=== PATIENT | female | born 1965 | race Two or more races ===

== ENCOUNTER 2021-02-06 20:32 | Emergency (ER) | payer BC ==
[~2021-02-06] VITALS: Ht 157.5 cm; Wt 52.6 kg
[2021-02-06 20:39] VITALS: BP_SYST 108
[2021-02-06] MEDS ORDERED: fentaNYL CITRATE/PF 100 MCG/2 ML AMP IVP ONE (21:45)
[2021-02-06 21:55] LABS: BASOPHILS % (AUTO) 0.2 % (0.0-2.0); EOSINOPHILS # (AUTO) 0.2 K/uL (0.0-0.4); EOSINOPHILS % (AUTO) 2.6 % (0.0-4.0); HEMATOCRIT 34.8 % (36-48); HEMOGLOBIN 11.6 g/dL (12.0-16.0); LYMPHOCYTES # (AUTO) 0.5 K/uL (1.0-5.5); LYMPHOCYTES % (AUTO) 7.3 % (20.5-51.5); MEAN CORPUSCULAR HEMOGLOBIN 30 pg (27-31); MEAN CORPUSCULAR HGB CONC 33 % (32-36); MEAN CORPUSCULAR VOLUME 91 fL (79.0-98.0); MONOCYTES # (AUTO) 0.4 K/uL (0.0-1.0); MONOCYTES % (AUTO) 5.6 % (1.7-9.3); NEUTROPHILS # (AUTO) 5.8 K/uL (1.8-7.7); NEUTROPHILS % (AUTO) 84.3 % (40.0-70.0); PLATELET COUNT (AUTO) 233 K/uL (130-430); RED BLOOD CELL COUNT(AUTO) 3.82 MIL/uL (4.2-6.2); RED CELL DISTRIBUTION WIDTH 16.5 % (9.0-15.0); WHITE BLOOD COUNT (AUTO) 6.9 K/uL (4.8-10.8)
[2021-02-06] MEDS ORDERED: NACL 0.9% 1,000 ML IV ONE (22:00)
[2021-02-06 22:17] LABS: ANION GAP 8 (5-15); CALCIUM 8.6 mg/dL (8.4-11.0); CHLORIDE 101 mmol/L (98-107); CREATININE 0.77 mg/dL (0.55-1.30); GLUCOSE 121 mg/dL (70-99); POTASSIUM 4.1 mmol/L (3.5-5.1); SODIUM SERUM 137 mmol/L (136-145); UREA NITROGEN, BLOOD 10 mg/dL (8-21)
[2021-02-06 22:20] LABS: GFR AFRICAN AMERICAN 101 mL/min (>90)
[2021-02-06 22:26] LABS: ALANINE AMINOTRANSFERASE 33 U/L (12-78); ALBUMIN 3.3 g/dL (3.4-4.8); ASPARTATE AMINOTRANSFERASE 23 U/L (10-37); TOTAL BILIRUBIN 0.2 mg/dL (0.0-1.0)
[2021-02-06] MEDS ORDERED: IOHEXOL 350 mgI/mL, 150 ML INFUS..BTL IV ONE (22:40)
[2021-02-06] MEDS ORDERED: ONDANSETRON HCL 4 MG/2 ML VIAL IVP ONE (22:45)
[2021-02-06] MEDS ORDERED: MORPHINE 4 MG INJ. 4 MG/ML VIAL IVP ONE (22:45)
[2021-02-07] MEDS ORDERED: CYCL10TA24 PO (01:10)
[2021-02-07] MEDS ORDERED: HYDR-3917 PO (01:10)
[2021-02-07 01:18] VITALS: BP_SYST 108
== END 2021-02-07 01:20 | disposition home or self-care (01) ==
LOC: SED 20:32
DX: M54.6 Pain in thoracic spine (principal); C43.9 Malignant melanoma of skin, unspecified
CPT/HCPCS: 36415; 71045; 71275; 76376; 80053; 84484; 85025; 85379; 93005; 96361; 96374; 96375; 99285; J2270; J2405; J3010; J7030; Q9967

== ENCOUNTER 2021-02-08 14:39 | Emergency (ER) | payer BC ==
[~2021-02-08] VITALS: Ht 157.5 cm; Wt 52.6 kg
[~2021-02-08 14:39] MED LIST: CYCL10TA24 PO; HYDR-3917 PO
--- NOTE | 2021-02-08 14:39 | NUR ---
PT PLACED IN BED 6
[2021-02-08 14:40] VITALS: BP_SYST 115
--- NOTE | 2021-02-08 14:45 | NUR ---
MD KIMBALL AT BEDSIDE ASSESSING PT
[2021-02-08 15:28] LABS: BASOPHILS % (AUTO) 0.1 % (0.0-2.0); EOSINOPHILS # (AUTO) 0.2 K/uL (0.0-0.4); EOSINOPHILS % (AUTO) 3.8 % (0.0-4.0); HEMATOCRIT 35.1 % (36-48); HEMOGLOBIN 11.6 g/dL (12.0-16.0); LYMPHOCYTES # (AUTO) 0.4 K/uL (1.0-5.5); LYMPHOCYTES % (AUTO) 8.5 % (20.5-51.5); MEAN CORPUSCULAR HEMOGLOBIN 30 pg (27-31); MEAN CORPUSCULAR HGB CONC 33 % (32-36); MEAN CORPUSCULAR VOLUME 92 fL (79.0-98.0); MONOCYTES # (AUTO) 0.4 K/uL (0.0-1.0); MONOCYTES % (AUTO) 8.1 % (1.7-9.3); NEUTROPHILS % (AUTO) 79.5 % (40.0-70.0); PLATELET COUNT (AUTO) 249 K/uL (130-430); RED BLOOD CELL COUNT(AUTO) 3.83 MIL/uL (4.2-6.2); RED CELL DISTRIBUTION WIDTH 16.3 % (9.0-15.0)
[2021-02-08 15:45] LABS: CALCIUM 8.6 mg/dL (8.4-11.0); CREATININE 1.05 mg/dL (0.55-1.30)
--- NOTE | 2021-02-08 15:45 | NUR ---
US BEING DONE NOW.
[2021-02-08 15:46] LABS: INR 0.9 (0.8-1.2); PROTHROMBIN TIME 9.8 SECS (9.5-12.5)
[2021-02-08 15:51] LABS: TOTAL BILIRUBIN 0.2 mg/dL (0.0-1.0)
[2021-02-08] MEDS: IBUPROFEN 600 MG TABLET PO ONE (16:12)
[2021-02-08] MEDS: traMADol HCL HCL 50 MG TABLET (ULTRAM) PO ONE (16:12)
--- NOTE | 2021-02-08 16:31 | NUR ---
Patient given written and verbal discharge instructions and verbalizes understanding. ER MD discussed with patient the results and treatment provided. Patient in stable condition. ID arm band removed. Patient educated on pain management and to follow up with PMD. Pain Scale []. Opportunity for questions provided and answered. Medication side effect fact sheet provided.
--- NOTE | 2021-02-08 16:31 | NUR ---
US NEGATIVE FOR DVT.
[2021-02-08 16:34] VITALS: BP_SYST 115
== END 2021-02-08 16:31 | disposition home or self-care (01) ==
LOC: SED 14:39
DX: R60.0 Localized edema (principal); Z79.899 Other long term (current) drug therapy
CPT/HCPCS: 36415; 80053; 85025; 85610-TC; 85730-TC; 93971; 99284